=== PATIENT | female | born 1970 | race African-American/Black ===

== ENCOUNTER 2024-04-12 13:30 | Day surgery (SDC) | payer OTHER ==
[2024-04-12] MEDS: IRON SUCROSE INJECTION 200 MG in SODIUM CHLORIDE 100 ML IVPB ONE (14:11)
[2024-04-12 16:06] VITALS: BP 111/59; PULSE 79; RESP 16; TEMP 98.6
== END 2024-04-12 16:07 | disposition home or self-care (01) ==
LOC: FINFUSION 13:30 → FM/S 13:34 → FINFUSION 16:07
PROVIDERS: ATTEND Family Medicine
PROC: 3E033GC Introduction of Other Therapeutic Substance into Peripheral Vein, Percutaneous Approach (ICD-10-PCS; principal; 2024-04-12)
DX: D50.9 Iron deficiency anemia, unspecified (principal)
CPT/HCPCS: 96365; J1756

== ENCOUNTER 2024-04-20 17:31 | Day surgery (SDC) | payer OTHER ==
[2024-04-20] MEDS: IRON SUCROSE INJECTION 200 MG in SODIUM CHLORIDE 100 ML IVPB ONE (18:06)
[2024-04-20 20:19] VITALS: BP 115/69; PULSE 69; RESP 16; TEMP 97.6
== END 2024-04-20 19:40 | disposition home or self-care (01) ==
LOC: FM/S 17:31 → FINFUSION 17:31
PROVIDERS: ATTEND Family Medicine
PROC: 3E033GC Introduction of Other Therapeutic Substance into Peripheral Vein, Percutaneous Approach (ICD-10-PCS; principal; 2024-04-20)
DX: D50.9 Iron deficiency anemia, unspecified (principal)
CPT/HCPCS: 96365; J1756

== ENCOUNTER 2024-04-26 17:12 | Day surgery (SDC) | payer OTHER ==
[2024-04-26] MEDS: IRON SUCROSE INJECTION 200 MG in SODIUM CHLORIDE 100 ML IVPB ONE (17:40)
[2024-04-26 17:59] VITALS: RESP 16; TEMP 98.8
[2024-04-26 19:03] VITALS: BP 124/70; PULSE 72
== END 2024-04-26 19:03 | disposition home or self-care (01) ==
LOC: FINFUSION 17:12 → FM/S 17:13 → FINFUSION 19:03
PROVIDERS: ATTEND Family Medicine
PROC: 3E033GC Introduction of Other Therapeutic Substance into Peripheral Vein, Percutaneous Approach (ICD-10-PCS; principal; 2024-04-26)
DX: D50.9 Iron deficiency anemia, unspecified (principal)
CPT/HCPCS: 96365; J1756

== ENCOUNTER 2024-05-03 15:38 | Day surgery (SDC) | payer OTHER ==
[2024-05-03] MEDS: IRON SUCROSE COMPLEX 200 MG in SODIUM CHLORIDE 100 ML IVPB ONE (16:26)
[2024-05-03 17:15] VITALS: BP 119/76; PULSE 72; RESP 16; TEMP 98.2
== END 2024-05-03 17:09 | disposition home or self-care (01) ==
LOC: FM/S 15:38 → FINFUSION 15:38
PROVIDERS: ATTEND Family Medicine
PROC: 3E033GC Introduction of Other Therapeutic Substance into Peripheral Vein, Percutaneous Approach (ICD-10-PCS; principal; 2024-05-03)
DX: D50.9 Iron deficiency anemia, unspecified (principal)
CPT/HCPCS: 96365

== ENCOUNTER 2024-05-10 17:24 | Day surgery (SDC) | payer OTHER ==
[2024-05-10] MEDS: IRON SUCROSE INJECTION 200 MG in SODIUM CHLORIDE 100 ML IVPB ONE (18:50)
[2024-05-10 19:58] VITALS: BP 120/73; PULSE 71; RESP 16; TEMP 98.3
== END 2024-05-10 19:59 | disposition home or self-care (01) ==
LOC: FM/S 17:24 → FINFUSION 17:24
PROVIDERS: ATTEND Family Medicine
PROC: 3E033GC Introduction of Other Therapeutic Substance into Peripheral Vein, Percutaneous Approach (ICD-10-PCS; principal; 2024-05-10)
DX: D50.9 Iron deficiency anemia, unspecified (principal)
CPT/HCPCS: 96365; J1756

== ENCOUNTER 2024-06-26 21:09 | Emergency (ER) | payer OTHER ==
[2024-06-26 21:32] VITALS: RESP 18; BMI 20.9
[2024-06-26 22:48] LABS: BASO % 0.5 % (0-2.0); EOS % 0.2 % (0-4.5); HEMATOCRIT 28.5 % (32.4-45.2); HEMOGLOBIN 9.3 GM/dL (10.7-15.3); LYMPH % 33.8 % (8-40); MCH 25.1 pg (25.7-33.7); MCHC 32.8 g/dl (32.0-36.0); MEAN CELL VOLUME 76.6 fl (80-96); MEAN PLT VOLUME 8.2 fl (7.5-11.1); NEUT % 59.5 % (42.8-82.8); PLATELET COUNT 253 10^3/uL (134-434); RBC 3.72 M/mm3 (3.60-5.2); RDW 22.8 % (11.6-15.6); WHITE BLOOD COUNT 6.1 K/mm3 (4.0-10.0)
[2024-06-26 23:08] LABS: POTASSIUM 3.8 mmol/L (3.5-5.1)
[2024-06-26 23:11] LABS: ALBUMIN 3.9 g/dl (3.4-5.0); BLOOD UREA NITROGEN 11.2 mg/dL (7-18); CALCIUM 9.2 mg/dL (8.5-10.1); MAGNESIUM 1.9 mg/dL (1.8-2.4)
[2024-06-26 23:14] LABS: CREATININE 0.8 mg/dL (0.55-1.3)
[2024-06-26 23:15] LABS: PHOSPHOROUS 3.3 mg/dL (2.5-4.9)
[2024-06-26 23:16] LABS: BILIRUBIN,TOTAL 0.3 mg/dL (0.2-1); TOT PROT 7.6 g/dl (6.4-8.2)
[2024-06-26 23:36] LABS: ANISOCYTOSIS 2+; MACROCYTOSIS 1+; OVALOCYTE 1+; TARGET CELLS 1+
[2024-06-27 00:04] LABS: HIV INTERPRETATION NEGATIVE (NEGATIVE)
[2024-06-27 00:51] VITALS: BP 127/68; PULSE 63; TEMP 98.5
== END 2024-06-27 01:16 | disposition home or self-care (01) ==
LOC: JER 21:09
DX: K59.00 Constipation, unspecified (principal)
CPT/HCPCS: 36415; 74177-TC; 80053; 83735; 84100; 84443; 84703; 85025; 86803; 86850; 86900; 86901; 87389; 93005; 93010; 99285-25; Q9967

== ENCOUNTER 2024-08-21 12:35 | Day surgery (SDC) | payer OTHER ==
[2024-08-21] MEDS: FERRIC CARBOXYMALTOSE 750 MG in SODIUM CHLORIDE 250 ML IVPB ONE (13:04)
[2024-08-21 13:52] VITALS: BP 135/81; PULSE 73; RESP 16; TEMP 98.1
== END 2024-08-21 13:52 | disposition home or self-care (01) ==
LOC: FINFUSION 12:35 → FM/S 12:35 → FINFUSION 13:52
PROVIDERS: ATTEND Family Medicine
PROC: 3E033GC Introduction of Other Therapeutic Substance into Peripheral Vein, Percutaneous Approach (ICD-10-PCS; principal; 2024-08-21)
DX: D50.9 Iron deficiency anemia, unspecified (principal)
CPT/HCPCS: 96365; J1439

== ENCOUNTER 2024-08-28 14:25 | Day surgery (SDC) | payer OTHER ==
[2024-08-28] MEDS: FERRIC CARBOXYMALTOSE 750 MG in SODIUM CHLORIDE 250 ML IVPB ONE (14:55)
[2024-08-28 15:57] VITALS: BP 97/65; PULSE 52; RESP 17; TEMP 97.5
== END 2024-08-28 15:58 | disposition home or self-care (01) ==
LOC: FINFUSION 14:25 → FM/S 14:26 → FINFUSION 15:58
PROVIDERS: ATTEND Family Medicine
PROC: 3E033GC Introduction of Other Therapeutic Substance into Peripheral Vein, Percutaneous Approach (ICD-10-PCS; principal; 2024-08-28)
DX: D50.9 Iron deficiency anemia, unspecified (principal)
CPT/HCPCS: 96365; J1439

== ENCOUNTER 2024-09-13 04:36 | Inpatient (IN) | payer OTHER ==
[2024-09-11 10:43] VITALS: BMI 20.5
[2024-09-13] MEDS: PHENAZOPYRIDINE HCL 100 MG TABLET (FP) PO ONE (06:43)
[2024-09-13] MEDS ORDERED: ROCURONIUM BROMIDE 50 MG/5 ML SYRINGE ONE ×2 (07:04→09:23)
[2024-09-13] MEDS ORDERED: SUCCINYLCHOLINE CHLORIDE 200 MG/10 ML SYRINGE ONE (07:04)
[2024-09-13] MEDS ORDERED: ONDANSETRON 4 MG/2 ML VIAL ONE (07:05)
[2024-09-13] MEDS ORDERED: ceFAZolin SODIUM 1 GM VIAL ONE (07:05)
[2024-09-13] MEDS ORDERED: DEXAMETHASONE SOD PHOSPHATE 4 MG/1 ML VIAL ONE (07:05)
[2024-09-13] MEDS ORDERED: KETOROLAC TROMETHAMINE 30 MG/1 ML VIAL ONE ×2 (07:05→11:17)
[2024-09-13] MEDS ORDERED: LIDOCAINE HCL/PF 2% SDV 5ML VIAL ONE (07:05)
[2024-09-13] MEDS ORDERED: METOCLOPRAMIDE HCL INJECTION 10 MG/2 ML VIAL ONE (07:05)
[2024-09-13] MEDS ORDERED: GLYCOPYRROLATE 0.2 MG/1 ML VIAL ONE (07:05)
[2024-09-13] MEDS ORDERED: MIDAZOLAM HCL 2 MG/2 ML SINGLE DOSE VIAL ONE (07:06)
[2024-09-13] MEDS ORDERED: PROPOFOL 20 ML ONE ×2 (07:07→09:39)
[2024-09-13] MEDS ORDERED: KETAMINE HCL 200 MG/20 ML VIAL ONE (07:09)
[2024-09-13] MEDS ORDERED: MAGNESIUM SULF 50% (8.12 MEQ/2 ML-1 GM VIAL) ONE (07:09)
[2024-09-13] MEDS: ceFAZolin 2 GRAM PREMIX BAG IVPB ONE (08:40)
[2024-09-13] MEDS ORDERED: TRANEXAMIC ACID 1000 MG/10 ML VIAL ONE (08:47)
[2024-09-13] MEDS ORDERED: HYDROmorphone HCl 2 MG/ML VIAL ONE (08:49)
[2024-09-13] MEDS ORDERED: ONDANSETRON 4 MG/2 ML VIAL IVPUSH PRN ×2 (09:27→11:54)
[2024-09-13] MEDS ORDERED: LACTATED RINGERS SOLUTION 1,000 ML IV SCH (09:30)
[2024-09-13] MEDS ORDERED: ACETAMINOPHEN INJECTION 100 ML ONE (11:21)
[2024-09-13] MEDS: CEFAZOLIN SODIUM 2 GM in DEXTROSE 5%-WATER 100 ML IVPB ONE (11:31)
[2024-09-13] MEDS ORDERED: DOCUSATE SODIUM 100 MG CAPSULE (FP) PO PRN (11:54)
[2024-09-13] MEDS ORDERED: BISACODYL 5 MG TABLET.DR (FP) PO PRN (11:54)
[2024-09-13] MEDS ORDERED: ACETAMINOPHEN 325 MG TABLET (FP) PO SCH (12:00)
[2024-09-13] MEDS: LACTATED RINGERS SOLUTION 1,000 ML IV SCH (12:29)
[2024-09-13] MEDS: IBUPROFEN 800 MG/8 ML IJ IVPB PRN (13:52)
[2024-09-13] MEDS: ACETAMINOPHEN 325 MG TABLET (FP) PO SCH (17:10)
[2024-09-13] MEDS ORDERED: diphenhydrAMINE HCL 25 MG CAPSULE (FP) PO ONE (17:19)
[2024-09-13] MEDS: diphenhydrAMINE HCL 25 MG CAPSULE (FP) PO PRN (17:19)
[2024-09-13] MEDS: CEFAZOLIN 1 GM/D5W 1 GM/50 ML BAG IVPB SCH (18:21)
[2024-09-13] MEDS: SIMETHICONE 80 MG TAB.CHEW (FP) PO PRN (19:47)
[2024-09-13] MEDS: oxyCODONE HCL 5 MG TABLET PO PRN (19:48)
[2024-09-13] MEDS: FLUoxetine HCL 20 MG CAPSULE PO SCH (22:20)
[2024-09-14] MEDS: oxyCODONE HCL 5 MG TABLET PO PRN (01:17)
[2024-09-14 08:02] LABS: HEMATOCRIT 24.2 % (32.4-45.2); HEMOGLOBIN 7.9 GM/dL (10.7-15.3); MCH 25.2 pg (25.7-33.7); MCHC 32.8 g/dl (32.0-36.0); MEAN PLT VOLUME 8.1 fl (7.5-11.1); PLATELET COUNT 192 10^3/uL (134-434); RBC 3.14 M/mm3 (3.60-5.2); RDW 26.8 % (11.6-15.6); WHITE BLOOD COUNT 6.9 K/mm3 (4.0-10.0)
[2024-09-14 08:30] LABS: POTASSIUM 3.3 mmol/L (3.5-5.1)
[2024-09-14 08:31] LABS: CALCIUM 8.1 mg/dL (8.5-10.1)
[2024-09-14 08:35] LABS: CREATININE 0.6 mg/dL (0.55-1.3)
[2024-09-14] MEDS: ENOXAPARIN NA (PORCINE) 40 MG/0.4 ML DISP.SYRIN SQ SCH (10:15)
[2024-09-14] MEDS: POTASSIUM CHLORIDE TABS 20 MEQ TABLET.ER (FP) PO SCH (12:06)
[2024-09-14] MEDS: ACETAMINOPHEN 325 MG TABLET (FP) PO ONE (14:10)
[2024-09-14] MEDS: CEFAZOLIN 1 GM/D5W 1 GM/50 ML BAG IVPB SCH (14:12)
[2024-09-14] MEDS: IBUPROFEN 600 MG TABLET (FP) PO SCH (16:58)
[2024-09-14] MEDS ORDERED: IBUPROFEN 600 MG TABLET (FP) PO SCH (18:00)
[2024-09-14] MEDS: ACETAMINOPHEN 500 MG TABLET (FP) PO SCH (18:33)
[2024-09-14 22:56] VITALS: RESP 18
[2024-09-15 08:47] LABS: HEMATOCRIT 28.5 % (32.4-45.2); HEMOGLOBIN 9.2 GM/dL (10.7-15.3); MCH 25.1 pg (25.7-33.7); MCHC 32.3 g/dl (32.0-36.0); MEAN CELL VOLUME 77.8 fl (80-96); MEAN PLT VOLUME 8.2 fl (7.5-11.1); PLATELET COUNT 223 10^3/uL (134-434); RBC 3.66 M/mm3 (3.60-5.2); RDW 27.2 % (11.6-15.6); WHITE BLOOD COUNT 7.3 K/mm3 (4.0-10.0)
[2024-09-15 09:01] LABS: POTASSIUM 3.8 mmol/L (3.5-5.1)
[2024-09-15 09:02] LABS: BLOOD UREA NITROGEN 6.3 mg/dL (7-18); CALCIUM 8.8 mg/dL (8.5-10.1)
[2024-09-15 09:06] LABS: CREATININE 0.7 mg/dL (0.55-1.3)
[2024-09-15] MEDS: FERROUS SO4 325 MG TABLET (FP) PO SCH (09:27)
[2024-09-15 10:11] LABS: ANISOCYTOSIS 1+; MACROCYTOSIS 0; TARGET CELLS 2+
[2024-09-15 11:37] VITALS: BP 140/83; PULSE 85; TEMP 97.9
== END 2024-09-15 12:53 | disposition home or self-care (01) | DRG 743 ==
LOC: J2C 04:36 → J3W 12:34
PROVIDERS: ADMIT Obstetrics & Gynecology; ATTEND Obstetrics & Gynecology
PROC: 0UB10ZZ Excision of Left Ovary, Open Approach (ICD-10-PCS; 2024-09-13)
PROC: 0DNW0ZZ Release Peritoneum, Open Approach (ICD-10-PCS; 2024-09-13)
PROC: 0UT90ZZ Resection of Uterus, Open Approach (ICD-10-PCS; principal; 2024-09-13 07:30)
PROC: 0UT70ZZ Resection of Bilateral Fallopian Tubes, Open Approach (ICD-10-PCS; 2024-09-13 07:30)
DX: D25.2 Subserosal leiomyoma of uterus (principal); D25.1 Intramural leiomyoma of uterus; N73.6 Female pelvic peritoneal adhesions (postinfective); R10.9 Unspecified abdominal pain
CPT/HCPCS: 36415; 71045-TC-FY; 80048; 84703; 85025; 85027; 86850; 86900; 86901; 88305-TC; 94010; 94760; J0131